=== PATIENT | female | born 1945 | race Caucasian/White ===

== ENCOUNTER → 2018-11-27 | Day surgery (SDC) | payer MEDICARE, OTHER ==
[2018-11-26 11:48] LABS: BASOPHILS % 0.6 % (0.0-1.0); EOSINOPHILS # (AUTO) 0.1 (0.0-0.4); EOSINOPHILS % 2.1 % (0.0-6.0); HEMATOCRIT 40.1 % (34.2-44.1); HEMOGLOBIN 13.1 g/dL (12.0-16.0); LYMPHOCYTES % 19.5 % (18.0-39.1); MEAN CORPUSCULAR HEMOGLOBIN 29.3 pg (28-32); MEAN CORPUSCULAR HGB CONC 32.7 g/dL (31-35); MEAN CORPUSCULAR VOLUME 89.7 fL (81-99); MONOCYTES # (AUTO) 0.6 (0.2-0.8); MONOCYTES % 10.5 % (4.4-11.3); NEUTROPHILS # (AUTO) 3.5 (2.1-6.9); NEUTROPHILS % 67.1 % (38.7-80.0); PLATELET COUNT 222 x10e3/uL (140-360); RED BLOOD COUNT 4.47 x10e6/uL (3.6-5.1); RED CELL DISTRIBUTION WIDTH 13.4 % (11.7-14.4)
[2018-11-26 12:06] LABS: INR 0.94; PROTHROMBIN TIME 13.1 seconds (11.9-14.5)
[2018-11-26 12:07] LABS: PARTIAL THROMBOPLASTIN TIME 26.7 seconds (23.8-35.5)
[2018-11-26 12:09] LABS: ALBUMIN 3.4 g/dL (3.5-5.0); ALBUMIN/GLOBULIN RATIO 0.9 (0.8-2.0); ANION GAP 11.2 mmol/L (8-16); CALCIUM 9.4 mg/dL (8.4-10.2); CREATININE, SERUM 1.19 mg/dL (0.57-1.11); POTASSIUM 4.2 mmol/L (3.5-5.1)
[2018-11-26 13:28] LABS: CHOL/HDL RATIO 4.7 (3.0-3.6)
[2018-11-26 13:49] LABS: THYROID STIMULATING HORMONE 1.301 uIU/mL (0.350-4.940)
[~2018-11-27] VITALS: Ht 170.2 cm; Wt 98.9 kg
[2018-11-27] VITALS (11 sets, daily range): BP systolic 120–150; BP diastolic 70–84
[~2018-11-27] MED LIST: ACETAMINOPHEN325 M1 PO; ASPIRIN 325 MG TAB ONE; COZAAR25 MG PO; FENTANYL CITRATE/PF 100MCG/2 ML INJ ONE; FLECAINIDE ACET50 MG PO; FLUOXETINE HCL20 MG PO; HEPARIN SOD (PORCINE) 1000 UNIT/ML 30ML ONE; HEPARIN SOD/SOD CHLORIDE 2,000 ML ONE; IOPAMIDOL 370 MG/ML 200 ML INFUS..BTL INJ ONE; LEVOTHYROXINE88 MCG PO; LIDOCAINE HCL 2% LOCAL 20 ML VIAL ONE; LORATADINE10 MG PO; METOPROLOL TART25 MG PO; METOPROLOL TART50 MG PO; MIDAZOLAM HCL 2 MG/2 ML VIAL ONE; MULTAQ400 MG PO; NITROGLYCERIN/D5W 200 MCG/ML 250 ML ONE; PROCHLORPERAZIN10 MG PO; SODIUM CHLORIDE 0.9% 1000ML 1,000 ML ONE; VERAPAMIL HCL 2.5 MG/ML 2 ML VIAL ONE; VITAMIN B-121000 MCG PO; VITAMIN D3400 UNIT PO; eliquis PO
--- OUTSIDE RECORDS SUMMARY | 2018-11-27 08:08 | XMS REPORT ---
Author Author [facility] Address Unknown Phone Unavailable Care Team Providers Care Waiter/Waitress Economy Class Name Role Phone ROOSEVELT VARGHESE Unavailable Unavailable Payers Payer Name Policy Type Policy Number Effective Date Expiration Date Problems This patient has no known problems. Allergies, Adverse Reactions, Alerts This patient has no known allergies or adverse reactions. Medications This patient has no known medications. Results Test Description Test Time Test Comments Text Results Atomic Results Result Comments CHEST SINGLE (PORTABLE) [place] [address] Patient Name: FRANCHESCA MORENO MR #: [id number] : 1945 Age/Sex: 71/F Req #: [id number] [facility] Physician: ROOSEVELT VARGHESE MD Ordered by: RAJANI SIMON MD Report #: [id number] Location: [facility] Room/Bed: [facility] Procedure: [id number] DX/CHEST SINGLE (PORTABLE) Exam Date: 02/08/17 Exam Time: 0545 REPORT STATUS: Signed EXAMINATION: Chest, CHEST SINGLE (PORTABLE) INDICATION: Pneumonia COMPARISON: CT chest 02/03/2017 FINDINGS: LINES: None. Heart: Normal cardiac silhouette. Vascular: The pulmonary vasculature is within normal limits. Atherosclerotic calcifications of the aortic arch. Mediastinum: No mediastinal, hilar, or axillary mass or lymphadenopathy. Lungs: No parenchymal mass. Airspace opacity in the right upper lobe. Pleura: No pleural effusion. No pneumothorax. Bones: No acute osseous abnormality. Degenerative changes of the thoracic spine. Soft tissues: Normal. Impression: Right upper lobe pneumonia. Signed by: Dr. Telma Bassett M.D. on 02/08/2017 10:54 AM Dictated By: TELMA BASSETT MD 1054 Transcribed By: SONYA on 02/08/17 1054 COPY TO: RAJANI SIMON MD CT CHEST W [place] [address] Patient Name: FRANCHESCA MORENO MR #: [id number] : 1945 Age/Sex: 71/F Req #: [id number] Adm Physician: Ordered by: AVANI MORTENSEN DEPILATORY PAINTER Report #: [id number] Location: ER Room/Bed: Procedure: [id number] CT/CT CHEST W Exam Date: 02/03/17 Exam Time: 2014 REPORT STATUS: Signed EXAM: CT Chest, Abdomen, and Pelvis WITH contrast INDICATION: Chest mass on x-ray COMPARISON: None. TECHNIQUE: Chest, abdomen and pelvis were scanned utilizing a multidetector helical scanner from the lung apex to the pubic symphysis after administration of IV contrast. Coronal and sagittal reformations were obtained. Routine protocol was performed. Scan was performed during portal venous phase. IV CONTRAST: 100 mL of Isovue-370 ORAL CONTRAST: Water COMPLICATIONS: None RADIATION DOSE: Total DLP: 1060.2 mGy*cm Estimated effective dose: (DLP x 0.015 x size factor) mSv CTDIvol has been reviewed. It is below the limits set by the Radiation Protocol Committee (RPC). FINDINGS: LINES and TUBES: None. LUNGS AND AIRWAYS: Patchy right upper lobe consolidation with intermixed groundglass opacities. Multiple pulmonary arteries and airways are noted to pass through the lesion without mass effect. No additional consolidations. PLEURA: The pleural spaces are clear. HEART AND MEDIASTINUM: The thyroid gland is normal. No mediastinal, hilar or axillary lymphadenopathy. The heart is normal in size.. There is no pericardial effusion. HEPATOBILIARY: No focal hepatic lesions. No biliary ductal dilation. GALLBLADDER: No radio-opaque stones or sludge. No wall thickening. SPLEEN: No splenomegaly. PANCREAS: No focal masses or ductal dilatation. ADRENALS: No adrenal nodules KIDNEYS/URETERS: Kidneys enhance symmetrically. No hydronephrosis. No cystic or solid mass lesions. No stones. GI TRACT: No abnormal distention or evidence of bowel obstruction. Mild pancolonic bowel wall thickening with vasa recta prominence. Mucosal enhancement of the rectosigmoid. Appendix is normal. Soft tissue thickening within the second and third duodenal segments (coronal image 51-53) measuring up to 1 cm thickness. PELVIC ORGANS/BLADDER: Unremarkable. LYMPH NODES: No lymphadenopathy. 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 Prominent likely portal collateral anterior to the IVC (for example on coronal image 52). Diffuse atherosclerosis. PERITONEUM / RETROPERITONEUM: No free air or fluid. Slight mesenteric haziness. BONES: Unremarkable. SOFT TISSUES: Unremarkable. IMPRESSION: 1. Right upper lobe consolidation concerning for pneumonia. Recommend follow-up chest radiograph after appropriate therapy to document resolution. 2. 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 Associated minimal mesenteric edema. 3. Pancolonic wall thickening and vasa recta engorgement may be related to pancolitis or wall edema from mesenteric congestion. 4. Irregular wall thickening in the second and third duodenal segments raising concern for an intraluminal mass or varix. Signed by: DR. Davonte Abarca MD on 02/03/2017 9:14 PM Dictated By: DAVONTE ABARCA MD 13 COPY TO: AVANI MORTENSEN NP CT ABDOMEN/PELVIS W [place] [address] Patient Name: FRANCHESCA MORENO MR #: [id number] : 1945 Age/Sex: 71/F Req #: [id number] Adm Physician: Ordered by: AVANI MORTENSEN DEPILATORY PAINTER Report #: [id number] Location: ER Room/Bed: Procedure: [id number] CT/CT ABDOMEN/PELVIS W Exam Date: 02/03/17 Exam Time: 2014 REPORT STATUS: Signed EXAM: CT Chest, Abdomen, and Pelvis WITH contrast INDICATION: Chest mass on x-ray COMPARISON: None. TECHNIQUE: Chest, abdomen and pelvis were scanned utilizing a multidetector helical scanner from the lung apex to the pubic symphysis after administration of IV contrast. Coronal and sagittal reformations were obtained. Routine protocol was performed. Scan was performed during portal venous phase. IV CONTRAST: 100 mL of Isovue- 370 ORAL CONTRAST: Water COMPLICATIONS: None RADIATION DOSE: Total DLP: 1060.2 mGy*cm Estimated effective dose: (DLP x 0.015 x size factor) mSv CTDIvol has been reviewed. It is below the limits set by the Radiation Protocol Committee (RPC). FINDINGS: LINES and TUBES: None. LUNGS AND AIRWAYS: Patchy right upper lobe consolidation with intermixed groundglass opacities. Multiple pulmonary arteries and airways are noted to pass through the lesion without mass effect. No additional consolidations. PLEURA: The pleural spaces are clear. HEART AND MEDIASTINUM: The thyroid gland is normal. No mediastinal, hilar or axillary lymphadenopathy. The heart is normal in size.. There is no pericardial effusion. HEPATOBILIARY: No focal hepatic lesions. No biliary ductal dilation. GALLBLADDER: No radio-opaque stones or sludge. No wall thickening. SPLEEN: No splenomegaly. PANCREAS: No focal masses or ductal dilatation. ADRENALS: No adrenal nodules KIDNEYS/URETERS: Kidneys enhance symmetrically. No hydronephrosis. No cystic or solid mass lesions. No stones. GI TRACT: No abnormal distention or evidence of bowel obstruction. Mild pancolonic bowel wall thickening with vasa recta prominence. Mucosal enhancement of the rectosigmoid. Appendix is n ormal. Soft tissue thickening within the second and third duodenal segments (coronal image 51-53) measuring up to 1 cm thickness. PELVIC ORGANS/BLADDER: Unremarkable. LYMPH NODES: No lymphadenopathy. 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 Prominent likely portal collateral anterior to the IVC (for example on coronal image 52). Diffuse atherosclerosis. PERITONEUM / RETROPERITONEUM: No free air or fluid. Slight mesenteric haziness. BONES: Unremarkable. SOFT TISSUES: Unremarkable. IMPRESSION: 1. Right upper lobe consolidation concerning for pneumonia. Recommend follow- up chest radiograph after appropriate therapy to document resolution. 2. 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 Associated minimal mesenteric edema. 3. Pancolonic wall thickening and vasa recta engorgement may be related to pancolitis or wall edema from mesenteric congestion. 4. Irregular wall thickening in the second and third duodenal segments raising concern for an intraluminal mass or varix. Signed by: DR. Davonte Abarca MD on 02/03/2017 9:14 PM Dictated By: DAVONTE ABARCA MD 13 Transcribed By: SONYA on 02/03/172113 COPY TO: AVANI MORTENSEN DEPILATORY PAINTER CHEST 2 VIEWS [place] [address] Patient Name: FRANCHESCA MORENO MR #: [id number] : 1945 Age/Sex: 71/F Req #: [id number] Adm Physician: Ordered by: LISHA AVILA MD Report #: [id number] Location: ER Room/Bed: Procedure: [id number] DX/CHEST 2 VIEWS Exam Date: 02/03/17 Exam Time: 1650 REPORT STATUS: Signed PROCEDURE: CHEST 2 VIEWS TECHNIQUE: PA and lateral chest INDICATION: Cough; weakness COMPARISON: None. FINDINGS: 5 x 7 cm right upper lobe mass. Lungs are otherwise clear. Normal heart size. Tortuous thoracic aorta. Intact skeleton. CONCLUSION: 5 x 7 cm right upper lobe mass. CT chest with contrast recommended for characterization. Dictated by: Zander Gross M.D. on 02/03/2017 at 17:13 Electronically approved by: Zander Gross M.D. on 02/03/2017 at 17:13 Dictated By: ZANDER GROSS MD 12 Transcribed By: YAIR on 02/03/171712 COPY TO: LISHA AVILA MD
--- NOTE | 2018-11-27 21:54 | Operative Report ---
DATE OF PROCEDURE: 11/27/2018 SURGEON: Ricardo Rajput MD PROCEDURE INDICATION: Angina pectoris and abnormal stress test. PROCEDURES PERFORMED: 1. Left heart catheterization. 2. Selective coronary angiography. 3. Right radial TR band hemostasis. 4. Ultrasound-guided access. PROCEDURE COMPLICATIONS: None. ESTIMATED BLOOD LOSS: Less than 15 mL. PROCEDURE SUMMARY: After consent was obtained, the patient was prepped and draped in a sterile fashion. The right radial site was locally infiltrated with 2% lidocaine. With ultrasound-guided, access was obtained and a 5-Kosovan outer diameter slender sheath was advanced over a wire. A TIG catheter 5-Kosovan in diameter was used for engagement of left main and angiography was performed in multiple views. Similarly, the right coronary artery was engaged and angiography was performed in multiple views. Of note, the aortic valve was also crossed for hemodynamic measurements. No left ventriculogram was performed. FINDINGS: 1. LV pressure is 138/5 with end-diastolic pressure of 8. 2. Aortic pressure is 138/78. 3. Left main is large in caliber with luminal irregularities. It gives an LAD and circumflex. 4. The LAD has approximately luminal irregularities. It gives a diagonal septal beater room supervisor, after which the mid LAD has an area of tubular 30% stenosis. Additional diagonals and septal perforators of small caliber, arises from the apical LAD, which ends after wrapping around into the apical anterior segment of LV myocardium. 5. The circumflex has luminal irregularities and it gives two obtuse marginals. The first one is small in caliber. The second one is medium in caliber. 6. Right coronary artery is dominant, it has luminal irregularities, it gives conus branch proximally; RV marginals, one in medium in caliber in the mid segment; and a terminal RPDA and RPLV. CONCLUSION: Mild coronary artery disease. RECOMMENDATIONS: Medical management and wean TR band. Ricardo Rajput MD AFV/MODL /[id number]
== END | disposition home or self-care (01) ==
LOC: CATH LAB 08:00
PROVIDERS: ATTEND Internal Medicine Cardiovascular Disease
DX: I25.118 Atherosclerotic heart disease of native coronary artery with other forms of angina pectoris (principal); I48.0 Paroxysmal atrial fibrillation; I10 Essential (primary) hypertension; R06.02 Shortness of breath; E66.01 Morbid (severe) obesity due to excess calories; Z88.6 Allergy status to analgesic agent; Z88.5 Allergy status to narcotic agent; Z68.34 Body mass index [BMI] 34.0-34.9, adult; Z01.810 Encounter for preprocedural cardiovascular examination; Z01.812 Encounter for preprocedural laboratory examination
CPT/HCPCS: 36415; 76937; 80053; 80061; 84443; 85025; 85610; 85730; 93005; 93458; C1887; J1644; J2001; J2250; J3010; J7030; Q9967

== ENCOUNTER 2023-10-09 12:44 | Emergency (ER) | payer MEDICARE, OTHER ==
[~2023-10-09] VITALS: Ht 170.2 cm; Wt 98.9 kg
[~2023-10-09 12:44] MED LIST changes: -ASPIRIN 325 MG TAB ONE; -FENTANYL CITRATE/PF 100MCG/2 ML INJ ONE; -HEPARIN SOD (PORCINE) 1000 UNIT/ML 30ML ONE; -HEPARIN SOD/SOD CHLORIDE 2,000 ML ONE; -IOPAMIDOL 370 MG/ML 200 ML INFUS..BTL INJ ONE; -LIDOCAINE HCL 2% LOCAL 20 ML VIAL ONE; -MIDAZOLAM HCL 2 MG/2 ML VIAL ONE; -NITROGLYCERIN/D5W 200 MCG/ML 250 ML ONE; -SODIUM CHLORIDE 0.9% 1000ML 1,000 ML ONE; -VERAPAMIL HCL 2.5 MG/ML 2 ML VIAL ONE
[2023-10-09 13:14] VITALS: TEMP 98.1
[2023-10-09] MEDS ORDERED: SODIUM CHLORIDE FLUSH 10 ML SYR IV PRN (13:15)
[2023-10-09 13:32] LABS: BASOPHILS % 0.4 % (0.0-1.0); EOSINOPHILS # (AUTO) 0.1 (0.0-0.4); EOSINOPHILS % 0.9 % (0.0-6.0); HEMATOCRIT 46.3 % (34.2-44.1); LYMPHOCYTES # (AUTO) 0.9 (1.0-3.2); LYMPHOCYTES % 15.4 % (18.0-39.1); MEAN CORPUSCULAR HEMOGLOBIN 29.9 pg (28-32); MEAN CORPUSCULAR HGB CONC 32.4 g/dL (31-35); MEAN CORPUSCULAR VOLUME 92.2 fL (81-99); MONOCYTES # (AUTO) 0.3 (0.2-0.8); NEUTROPHILS # (AUTO) 4.4 (2.1-6.9); NEUTROPHILS % 77.1 % (38.7-80.0); PLATELET COUNT 200 x10e3/uL (140-360); RED BLOOD COUNT 5.02 x10e6/uL (3.6-5.1); RED CELL DISTRIBUTION WIDTH 13.6 % (11.7-14.4); WHITE BLOOD COUNT 5.66 x10e3/uL (4.8-10.8)
[2023-10-09 13:59] LABS: ALBUMIN 3.8 g/dL (3.5-5.0); ANION GAP 15.9 mmol/L (8-16); BILIRUBIN,TOTAL 0.7 mg/dL (0.2-1.2); CALCIUM 8.8 mg/dL (8.4-10.2); CREATININE, SERUM 0.98 mg/dL (0.57-1.11); POTASSIUM 3.9 mmol/L (3.5-5.1); TOTAL PROTEIN 7.6 g/dL (6.5-8.1)
[2023-10-09] MEDS: ACETAMINOPHEN 325 MG TAB PO ONE (17:11)
[2023-10-09] MEDS: LABETALOL HCL 5 MG/ML 20ML VIAL IV STA (17:23)
[2023-10-09 17:40] VITALS: PULSE 96; RESP 18
[2023-10-09] MEDS ORDERED: CLONIDINE HCL0.1 MG PO (17:41)
[2023-10-09 18:59] VITALS: BP 166/104; PULSE 95; RESP 16; O2SAT 98
== END 2023-10-09 18:30 | disposition home or self-care (01) ==
LOC: ER 13:04
DX: I16.0 Hypertensive urgency (principal); E11.65 Type 2 diabetes mellitus with hyperglycemia; I48.91 Unspecified atrial fibrillation; E78.5 Hyperlipidemia, unspecified; E03.9 Hypothyroidism, unspecified; F32.A Depression, unspecified; R94.31 Abnormal electrocardiogram [ECG] [EKG]; Z87.19 Personal history of other diseases of the digestive system
CPT/HCPCS: 36415; 80053; 85025; 93005; 94760; 99284; J3490